=== PATIENT | male | born 1955 | race Caucasian/White ===

== ENCOUNTER 2017-02-25 13:03 | Emergency (ER) | END 2017-02-25 17:36 | disposition home or self-care (01) | DX: S81.802A Unspecified open wound, left lower leg, initial encounter (principal); R40.2252 Coma scale, best verbal response, oriented, at arrival to emergency department; L03.116 Cellulitis of left lower limb; I10 Essential (primary) hypertension; F17.210 Nicotine dependence, cigarettes, uncomplicated; R40.2142 Coma scale, eyes open, spontaneous, at arrival to emergency department; R40.2362 Coma scale, best motor response, obeys commands, at arrival to emergency department; W22.8XXA Striking against or struck by other objects, initial encounter; Y92.9 Unspecified place or not applicable | CPT/HCPCS: 80053; 85025; 93971; 96374; J1335; Z7502; Z7610 ==